=== PATIENT | female | born 1960 | race Caucasian/White ===

== ENCOUNTER 2019-01-04 09:06 | Day surgery (SDC) | payer OTHER, BC ==
[2019-01-04] MEDS ORDERED: FENTAnyl 50 MCG/ML VIAL (12:01)
[2019-01-04] MEDS ORDERED: MIDAZOLAM 1 MG/ML 2 ML INJ ×2 (12:01)
== END 2019-01-04 13:30 | disposition home or self-care (01) ==
LOC: GIL 09:06
DX: Z12.11 Encounter for screening for malignant neoplasm of colon (principal); K64.1 Second degree hemorrhoids
CPT/HCPCS: 45378